=== PATIENT | female | born 1940 | race Caucasian/White ===

== ENCOUNTER 2016-10-02 15:31 | Emergency (ER) | payer OTHER, BC ==
[~2016-10-02] VITALS: Ht 157.5 cm; Wt 54.4 kg
[2016-10-02 16:57] VITALS: BP 140/80
== END 2016-10-02 16:58 | disposition home or self-care (01) ==
LOC: ER 15:31
DX: S09.90XA Unspecified injury of head, initial encounter (principal); S61.011A Laceration without foreign body of right thumb without damage to nail, initial encounter; M25.562 Pain in left knee; M25.561 Pain in right knee; M79.643 Pain in unspecified hand; J45.909 Unspecified asthma, uncomplicated; Z88.5 Allergy status to narcotic agent; W01.0XXA Fall on same level from slipping, tripping and stumbling without subsequent striking against object, initial encounter; Y93.01 Activity, walking, marching and hiking; Y92.89 Other specified places as the place of occurrence of the external cause; Y99.8 Other external cause status